=== PATIENT | female | born 1950 | race Caucasian/White ===

== ENCOUNTER 2016-08-09 08:46 | Day surgery (SDC) | payer MEDICARE ==
--- NOTE | ~2016-08-09 | EGD ---
EGD REPORT [facility] [address] [id number] NAME: COREEN CRUZ : [birth year] STATUS : REG [facility]#: [id number] AGE: 65 ADM/REG DATE : 08/09/16 MR#: [id number] REPORT SERV DATE: 08/09/16 DICTATED BY: AMITA ZAMORA DATE: 08/09/16 REPORT STATUS : Draft TRANSCRIBED BY: [facility] DATE: 08/09/16 [facility] Patient Name: Coreen Cruz Date of : 1950 Attending MD: AMITA ZAMORA, Procedure Date No Time: 08/09/2016 Procedure: Upper EUS Indications: Gastric deformity on endoscopy/Subepithelial tumor versus extrinsic compression Referring MD: BECKY CHRISTENSEN, MEGAN SOLIZ MD Medicines: Monitored Anesthesia Care Complications: No immediate complications. Estimated blood loss: None. Procedure: Pre-Anesthesia Assessment: - ASA Grade Assessment: II - A patient with mild systemic disease. After obtaining informed consent, the endoscope was passed under direct vision. Throughout the procedure, the patient's blood pressure, pulse, and oxygen saturations were monitored continuously. The GIF [id number] was introduced through the mouth, and advanced to the second part of duodenum. The Endoscope was introduced through the mouth, and advanced to the second part of duodenum. Findings: Endoscopic Finding : The examined esophagus was endoscopically normal. A single medium-sized papule (nodule) with no bleeding and no stigmata of recent bleeding was found in the gastric antrum. The exam of the stomach was otherwise normal. The cardia and gastric fundus were normal on retroflexion. The examined duodenum was endoscopically normal. Endosonographic Finding : A tortuous intramural (subepithelial) lesion was found in the antrum of the stomach. The lesion was heterogenous. Sonographically, the lesion appeared to originate from the submucosa (Layer 3). The lesion measured 15 mm (in maximum thickness). The lesion also measured 6 mm in diameter. The outer endosonographic borders were well defined. There was no sign of significant endosonographic abnormality in the entire pancreas. The pancreas was well visualized, no masses, no calcifications, the pancreatic duct was well visualized from ampulla to tail, the pancreatic duct was regular in contour. There was no sign of significant endosonographic abnormality in the common bile duct. The esophagus, stomach and duodenum and adjacent structures were EGD REPORT [address] [address] NAME: COREEN CRUZ : [birth year] STATUS : REG [facility]#: [id number] AGE: 65 ADM/REG DATE : 08/09/16 MR#: [id number] REPORT SERV DATE: 08/09/16 DICTATED BY: AMITA ZAMORA DATE: 08/09/16 REPORT STATUS : Draft TRANSCRIBED BY: [employer] DATE: 08/09/16 visualized endosonographically. There was no sign of significant endosonographic abnormality in the examined duodenum. No lymphadenopathy seen. There was no sign of significant endosonographic abnormality in the esophagus. Impression: - Normal esophagus. - A single medium-sized papule (nodule) with no bleeding and no stigmata of recent bleeding was found in the stomach. - Normal examined duodenum. - An intramural (subepithelial) lesion was found in the antrum of the stomach. The lesion appeared to originate from within the submucosa (Layer 3). Tissue has not been obtained. However, the endosonographic appearance is highly suspicious for aberrant pancreas. - There was no sign of significant pathology in the entire pancreas. - There was no sign of significant pathology in the common bile duct. - There was no sign of significant pathology in the examined duodenum. - There was no sign of significant pathology in the esophagus. Recommendation: - Return to previous diet. - Continue present medications. - Return to referring physician. - Given lesion is unchaned, would not recommend further follow up. Procedure Code(s): --- Professional --- 96099, Esophagogastroduodenoscopy, flexible, transoral; with endoscopic ultrasound examination, including the esophagus, stomach, and either the duodenum or a surgically altered stomach where the jejunum is examined distal to the anastomosis Diagnosis Code(s): --- Professional --- K31.9, Disease of stomach and duodenum, unspecified K31.89, Other diseases of stomach and duodenum CPT copyright 2013 [employer]. All rights reserved. The codes documented in this report are preliminary and upon tubing mill setter review may EGD REPORT [facility] [address] [place]. [address] NAME: COREEN CRUZ : [birth year] STATUS : REG [facility] PAT#: [id number] AGE: 65 ADM/REG DATE : 08/09/16 MR#: [id number] REPORT SERV DATE: 08/09/16 DICTATED BY: AMITA ZAMORA DATE: 08/09/16 REPORT STATUS : Draft TRANSCRIBED BY: [employer] DATE: 08/09/16 be revised to meet current compliance requirements. AMITA ZAMORA, 08/09/2016 10:52 AM Number of Addenda: 0 Note Initiated On: 08/09/2016 10:16 AM Scope Withdrawal Time 0 hours 0 minutes 0 seconds [id number] [facility] [place] [address]
[~2016-08-09 08:46] MED LIST: ACET500CAP PO; ACETSUP325 PR; ASAB PO; BENICAR20 PO; COZAAR100 MG PO; ESTRACE VAG0.1 MG/GM V; FAT FIGHTER PO; GREENS PO; HYOMAX-FT0.125 MG PO; IMOD PO; LORT7 PO; METPAKSF PO; MIRALAX; NEXIUM40 PO; OCEAN NAS; POTASSIUM GLUCO99 MG PO; PR25 PO; PRAVACHOL40 MG PO; PROCTOSOL HC2.5 % PR; UNISOM PO; UNISOM25 MG PO; VITAMIN D1000 UNI1 PO; VITAMIN D31000 UNIT PO; VITAMIN D400 UNI1 PO; [UNRECOGNIZED DRUG - OTHER] PO
== END 2016-08-09 23:59 | disposition home or self-care (01) ==
LOC: DMU 08:46
PROVIDERS: Internal Medicine Gastroenterology
PROC: 0DJ08ZZ Inspection of Upper Intestinal Tract, Via Natural or Artificial Opening Endoscopic (ICD-10-PCS; principal; 2016-08-09 10:30)
DX: K31.9 Disease of stomach and duodenum, unspecified (principal); K21.9 Gastro-esophageal reflux disease without esophagitis; K64.9 Unspecified hemorrhoids; K44.9 Diaphragmatic hernia without obstruction or gangrene; I10 Essential (primary) hypertension; E78.00 Pure hypercholesterolemia, unspecified; J34.2 Deviated nasal septum; M88.0 Osteitis deformans of skull; M19.90 Unspecified osteoarthritis, unspecified site; Z88.5 Allergy status to narcotic agent; Z88.1 Allergy status to other antibiotic agents; Z90.89 Acquired absence of other organs; Z90.49 Acquired absence of other specified parts of digestive tract; Z90.710 Acquired absence of both cervix and uterus; Z98.51 Tubal ligation status; Z79.899 Other long term (current) drug therapy; Z98.890 Other specified postprocedural states
CPT/HCPCS: C1725